=== PATIENT | male | born 1995 | race Caucasian/White ===

== ENCOUNTER 2020-08-20 12:32 | Outpatient (REF) | payer OTHER, SELFPAY | END 2020-08-20 12:33 | disposition home or self-care (01) | LOC: HO.SCI 12:32 | DX: Z13.89 Encounter for screening for other disorder (principal) ==

== ENCOUNTER 2020-08-23 14:04 | Outpatient (REF) | payer OTHER, SELFPAY ==
--- NOTE | ~2020-08-23 | MR_ITS ---
EXAMINATION: MR ANKLE WITHOUT CONTRAST, LEFT CLINICAL INFORMATION: Lateral left ankle pain. Injury 5 years ago. COMPARISON: None TECHNIQUE: Multisequence MR images of the left ankle were obtained without contrast on a high-field strength scanner. FINDINGS: BONE AND ARTICULAR CARTILAGE: There is an osteochondral lesion along the lateral aspect of the talar dome measuring 1.7 x 1.4 cm (AP x ML) with a depth of 0.6 cm and adjacent marrow edema. There is overlying articular cartilage signal heterogeneity and surface irregularity. Linear fluid signal underlies the lesion without a displaced osseous fragment. No additional abnormal marrow signal. No stress reaction or fracture. ACHILLES TENDON: Normal. OTHER TENDONS: Prominent fluid within the flexor digitorum and flexor hallucis longus tendon sheaths, consistent with tenosynovitis. No measurable tendon defect. LIGAMENTS: Intact. JOINT FLUID AND SOFT TISSUES: No joint effusion. Subcutaneous soft tissues are normal. PLANTAR FASCIA: Normal. SINUS TARSI AND TARSAL TUNNEL: Normal. MR/MR ankle LT wo con IMPRESSION: 1. Osteochondral lesion at the lateral aspect of the talar dome measuring approximately 1.7 x 1.4 cm (AP x ML). Fluid underlying the lesion indicating instability. Mild adjacent marrow edema. No displaced osseous fragment. 2. Fluid within the flexor hallucis longus and flexor digitorum longus tendon sheaths, consistent with tenosynovitis. No measurable tendon defect.
== END 2020-08-23 14:05 | disposition home or self-care (01) ==
LOC: HO.MRI 14:04
PROVIDERS: PCP Family Medicine; Visit Provider Orthopaedic Surgery
DX: M25.372 Other instability, left ankle (principal); M25.572 Pain in left ankle and joints of left foot; G89.29 Other chronic pain
CPT/HCPCS: 73721